=== PATIENT | female | born 1970 | race Two or more races ===

== ENCOUNTER → 2017-01-28 | Outpatient (CLI) | payer OTHER ==
[~2017-01-28] MED LIST: HYDR-3138 PO; None at this Time
== END | disposition home or self-care (01) ==
LOC: STAR 10:16
PROVIDERS: ATTEND Otolaryngology
DX: Z02.9 Encounter for administrative examinations, unspecified (principal)

== ENCOUNTER 2017-02-05 06:48 | Day surgery (SDC) | payer OTHER ==
[~2017-02-05] VITALS: Ht 160 cm; Wt 71.0 kg
[2017-02-05] MEDS ORDERED: BACITRACIN OINT 500U/GM, 15 GM ONE (07:00)
[2017-02-05] MEDS ORDERED: LIDOCAINE 1%-EPI 1:100K, 30ML ONE (07:00)
[2017-02-05] MEDS ORDERED: OXYMETAZOLINE NASAL SPRAY 0.05%, 15ML ONE (07:00)
[2017-02-05] MEDS ORDERED: LACTATED RINGERS 1,000 ML IV SCH (07:27)
[2017-02-05 07:28] VITALS: BP 123/79
[2017-02-05 07:56] LABS: HCG UR OBC PASS
[2017-02-05] MEDS ORDERED: FENTANYL PF 250 MCG/5ML ONE (08:48)
[2017-02-05] MEDS ORDERED: MIDAZOLAM 1 MG/ML, 2ML ONE (08:48)
[2017-02-05] MEDS ORDERED: ACETAMINOPHEN 325 MG TABLET PO PRN (09:30)
[2017-02-05] MEDS ORDERED: LABETALOL 5MG/ML, 20ML IV PRN (09:30)
[2017-02-05] MEDS ORDERED: FENTANYL PF 100 MCG/2ML IV PRN (09:30)
[2017-02-05] MEDS ORDERED: MIDAZOLAM 1 MG/ML, 2ML IV PRN (09:30)
[2017-02-05] MEDS ORDERED: ONDANSETRON 2MG/ML, 2ML IVPush PRN (09:30)
[2017-02-05] MEDS ORDERED: EPHEDRINE 50 MG/ML, 1ML IVPush PRN (09:30)
[2017-02-05] MEDS ORDERED: PROMETHAZINE 25 MG/ML, 1ML IV PRN (09:30)
[2017-02-05] MEDS ORDERED: METOPROLOL 1 MG/ML, 5ML IV PRN (09:30)
[2017-02-05] MEDS ORDERED: hydrALAzine 20 MG/ML, 1ML IV PRN (09:30)
[2017-02-05] MEDS ORDERED: MEPERIDINE/PF 25MG/0.5ML IVPush PRN (09:30)
[2017-02-05] MEDS ORDERED: OXYcodone 5 MG/5 ML ORAL.SOL UDC PO PRN (09:30)
[2017-02-05] MEDS ORDERED: ALBUTEROL SULFATE 2.5 MG/3 ML NPPB PRN (09:30)
[2017-02-05] MEDS ORDERED: HYDROmorphone 1 MG/ML, 1ML IV PRN (09:30)
[2017-02-05] MEDS ORDERED: ACETAMINOPHEN 325 MG TABLET ONE (10:00)
[2017-02-05] MEDS ORDERED: OXYcodone 5 MG/5 ML ORAL.SOL UDC ONE (10:00)
[2017-02-05] MEDS ORDERED: FENTANYL PF 100 MCG/2ML ONE (10:00)
[2017-02-05] MEDS ORDERED: ONDANSETRON 2MG/ML, 2ML ONE (11:09)
[2017-02-05] MEDS ORDERED: NEOSTIGMINE 1 MG/ML, 10ML ONE (11:09)
[2017-02-05] MEDS ORDERED: ROCURONIUM 10 MG/ML ONE (11:09)
[2017-02-05] MEDS ORDERED: DEXAMETHASONE 4 MG/ML, 1ML ONE (11:09)
[2017-02-05] MEDS ORDERED: GLYCOPYRROLATE 0.2MG/1ML ONE (11:09)
[2017-02-05] MEDS ORDERED: PROPOFOL 10 MG/ML, 20ML ONE (11:09)
[2017-02-05] MEDS ORDERED: CEFAZOLIN 1,000 MG ONE (11:09)
[2017-02-05] MEDS ORDERED: SUCCINYLCHOLINE 20 MG/ML, 10ML ONE (11:09)
== END 2017-02-05 13:05 | disposition home or self-care (01) ==
LOC: OUT 06:48
PROVIDERS: ATTEND Otolaryngology
DX: J34.2 Deviated nasal septum (principal); J34.3 Hypertrophy of nasal turbinates; Z90.49 Acquired absence of other specified parts of digestive tract
CPT/HCPCS: 30140; 30520; 81025; J0330; J0690; J1100; J2250; J2405; J2704; J2710; J3010; J3490; J7120

== ENCOUNTER 2019-05-15 06:15 | Day surgery (SDC) | payer OTHER ==
[~2019-05-15] VITALS: Ht 160 cm; Wt 75.0 kg
[~2019-05-15 06:15] MED LIST changes: -HYDR-3138 PO; +HYDR-3237 PO
[2019-05-15] MEDS ORDERED: LACTATED RINGERS 1,000 ML IV SCH (06:27)
[2019-05-15 06:28] VITALS: BP 117/77
[2019-05-15] MEDS ORDERED: BUPIVACAINE/PF 0.25% ONE (06:54)
[2019-05-15] MEDS ORDERED: SILVER NITRATE STICK TP ONE (06:55)
[2019-05-15 07:18] LABS: HCG UR SG 1.024 (1.003-1.030)
[2019-05-15] MEDS ORDERED: FENTANYL PF 100 MCG/2ML ONE ×2 (07:49→09:17)
[2019-05-15] MEDS ORDERED: MIDAZOLAM 1 MG/ML, 2ML ONE (07:49)
[2019-05-15] MEDS ORDERED: KETOROLAC 30 MG/1 ML IV PRN (08:30)
[2019-05-15] MEDS ORDERED: ALBUTEROL SULFATE 2.5 MG/3 ML NPPB PRN (08:30)
[2019-05-15] MEDS ORDERED: OXYcodone 5 MG/5 ML ORAL.SOL UDC PO PRN (08:30)
[2019-05-15] MEDS ORDERED: MEPERIDINE/PF 25MG/0.5ML IVPush PRN (08:30)
[2019-05-15] MEDS ORDERED: FENTANYL PF 100 MCG/2ML IV PRN (08:30)
[2019-05-15] MEDS ORDERED: HYDROmorphone 2 MG/ML, 1ML IVPush PRN (08:30)
[2019-05-15] MEDS ORDERED: hydrALAzine 20 MG/ML, 1ML IV PRN (08:30)
[2019-05-15] MEDS ORDERED: ACETAMINOPHEN 325 MG TABLET PO PRN (08:30)
[2019-05-15] MEDS ORDERED: LABETALOL 5MG/ML, 20ML IV PRN (08:30)
[2019-05-15] MEDS ORDERED: DIAZEPAM 5 MG/ML, 2ML IVPush PRN (08:30)
[2019-05-15] MEDS ORDERED: PROMETHAZINE 25 MG/ML, 1ML IV PRN (08:30)
[2019-05-15] MEDS ORDERED: ACETAMINOPHEN 650 MG/20.3 ML UDC ONE ×2 (09:07→09:10)
[2019-05-15] MEDS ORDERED: OXYcodone 5 MG/5 ML ORAL.SOL UDC ONE (09:17)
[2019-05-15] MEDS ORDERED: KETOROLAC 30 MG/1 ML ONE (14:57)
[2019-05-15] MEDS ORDERED: ONDANSETRON 2MG/ML, 2ML ONE (14:57)
[2019-05-15] MEDS ORDERED: PROPOFOL 10 MG/ML, 20ML ONE (14:57)
[2019-05-15] MEDS ORDERED: DEXAMETHASONE 4 MG/ML, 1ML ONE (14:57)
[2019-05-15] MEDS ORDERED: CEFAZOLIN 1,000 MG ONE (14:57)
== END 2019-05-15 12:05 | disposition home or self-care (01) ==
LOC: OR 06:15
PROVIDERS: ATTEND Obstetrics & Gynecology
DX: N85.8 Other specified noninflammatory disorders of uterus (principal); N99.71 Accidental puncture and laceration of a genitourinary system organ or structure during a genitourinary system procedure; Z79.899 Other long term (current) drug therapy; Z91.013 Allergy to seafood; Z90.49 Acquired absence of other specified parts of digestive tract; Z98.890 Other specified postprocedural states; Z83.3 Family history of diabetes mellitus; Z80.8 Family history of malignant neoplasm of other organs or systems; Y83.8 Other surgical procedures as the cause of abnormal reaction of the patient, or of later complication, without mention of misadventure at the time of the procedure
CPT/HCPCS: 58558; 81025; 88305; J0690; J1100; J1885; J2250; J2405; J2704; J3010; J3490; J7120

== ENCOUNTER 2019-10-22 11:20 | Outpatient (CLI) | payer OTHER ==
[2019-10-22] MEDS ORDERED: ESTRADIOL PATCH TD (12:33)
[2019-10-22] MEDS ORDERED: ANTISEIZURE MED PO (12:33)
[2019-10-22] MEDS ORDERED: ESTROGEN PO (12:33)
[2019-10-22 12:50] LABS: CHLORIDE 107 mmol/L (98-107)
[2019-10-22 12:59] LABS: MICROSCOPIC INDICATED
[2019-10-22 12:59] LABS: ALANINE AMINOTRANSFERASE 26 U/L (12-78); ALBUMIN 3.6 g/dL (3.4-5.0); ALKALINE PHOSPHATASE 76 U/L (45-117); ANION GAP 5 mmol/L (5-15); BILIRUBIN,TOTAL 0.8 mg/dL (0.2-1.0); CALCIUM 8.6 mg/dL (8.5-10.1); CREATININE 0.85 mg/dL (0.55-1.02)
[2019-10-22 13:02] LABS: CULTURE INDICATED? YES
== END 2019-10-22 23:59 | disposition home or self-care (01) ==
LOC: STAR 11:20
PROVIDERS: ATTEND Obstetrics & Gynecology
DX: Z01.818 Encounter for other preprocedural examination (principal); N95.0 Postmenopausal bleeding; R10.31 Right lower quadrant pain
CPT/HCPCS: 36415; 80053; 81001; 84702; 87086; 93005

== ENCOUNTER 2019-10-29 07:23 | Day surgery (SDC) | payer OTHER ==
[~2019-10-29] VITALS: Ht 160 cm; Wt 71.0 kg
[~2019-10-29 07:23] MED LIST changes: +ANTISEIZURE MED PO; +ESTRADIOL PATCH TD; +ESTROGEN PO; +FLUORESCEIN SODIUM 500 MG/5 ML ONE
[2019-10-29] MEDS ORDERED: LACTATED RINGERS 1,000 ML IV SCH (07:37)
[2019-10-29 07:59] VITALS: BP 109/68
[2019-10-29] MEDS ORDERED: GABAPENTIN 300 MG CAPSULE PO ONE (08:00)
[2019-10-29] MEDS ORDERED: ACETAMINOPHEN 500 MG TABLET PO ONE (08:00)
[2019-10-29] MEDS ORDERED: SCOPOLAMINE PATCH, 1.5MG PATCH.TD72 TD ONE (08:46)
[2019-10-29 08:47] LABS: HCG UR SG 1.019 (1.003-1.030)
[2019-10-29] MEDS ORDERED: FENTANYL PF 250 MCG/5ML ONE (08:55)
[2019-10-29] MEDS ORDERED: MIDAZOLAM 1 MG/ML, 2ML ONE (08:55)
[2019-10-29] MEDS ORDERED: PROPOFOL 50 ML ONE (09:39)
[2019-10-29] MEDS ORDERED: PROPOFOL 10 MG/ML, 20ML ONE (10:15)
[2019-10-29] MEDS ORDERED: ROCURONIUM 10MG/ML,5ML ONE (10:15)
[2019-10-29] MEDS ORDERED: DEXAMETHASONE 4 MG/ML, 1ML ONE (10:15)
[2019-10-29] MEDS ORDERED: NEOSTIGMINE 1 MG/ML, 10ML ONE (10:15)
[2019-10-29] MEDS ORDERED: SUCCINYLCHOLINE 20 MG/ML, 10ML ONE (10:15)
[2019-10-29] MEDS ORDERED: CEFAZOLIN 1,000 MG ONE (10:15)
[2019-10-29] MEDS ORDERED: ONDANSETRON 2MG/ML, 2ML ONE (10:15)
[2019-10-29] MEDS ORDERED: SUGAMMADEX 200 MG/2 ML IVPush ONE (10:15)
[2019-10-29] MEDS ORDERED: GLYCOPYRROLATE 0.2MG/1ML, 5ML ONE (10:15)
[2019-10-29] MEDS ORDERED: hydrALAzine 20 MG/ML, 1ML IV PRN (10:30)
[2019-10-29] MEDS ORDERED: MEPERIDINE/PF 25MG/0.5ML IVPush PRN (10:30)
[2019-10-29] MEDS ORDERED: FENTANYL PF 100 MCG/2ML IV PRN (10:30)
[2019-10-29] MEDS ORDERED: HYDROmorphone 2 MG/ML, 1ML IVPush PRN (10:30)
[2019-10-29] MEDS ORDERED: ACETAMINOPHEN 325 MG TABLET PO PRN (10:30)
[2019-10-29] MEDS ORDERED: OXYcodone 5 MG/5 ML ORAL.SOL UDC PO PRN (10:30)
[2019-10-29] MEDS ORDERED: KETOROLAC 30 MG/1 ML IV PRN (10:30)
[2019-10-29] MEDS ORDERED: ALBUTEROL SULFATE 2.5 MG/3 ML NPPB PRN (10:30)
[2019-10-29] MEDS ORDERED: LABETALOL 5MG/ML, 20ML IV PRN (10:30)
[2019-10-29] MEDS ORDERED: DIAZEPAM 5 MG/ML, 2ML IVPush PRN (10:30)
[2019-10-29] MEDS ORDERED: PROMETHAZINE 25 MG/ML, 1ML IV PRN (10:30)
[2019-10-29] MEDS ORDERED: FENTANYL PF 100 MCG/2ML ONE (11:03)
[2019-10-29] MEDS ORDERED: OXYcodone 5 MG/5 ML ORAL.SOL UDC ONE (11:03)
[2019-10-29] MEDS ORDERED: PROMETHAZINE 25 MG/ML, 1ML ONE (11:04)
== END 2019-10-29 14:50 | disposition home or self-care (01) ==
LOC: OUT 07:23
PROVIDERS: ATTEND Obstetrics & Gynecology
DX: N95.0 Postmenopausal bleeding (principal); D25.9 Leiomyoma of uterus, unspecified; N80.0 Endometriosis of uterus; Z90.49 Acquired absence of other specified parts of digestive tract; Z88.8 Allergy status to other drugs, medicaments and biological substances; Z98.890 Other specified postprocedural states
CPT/HCPCS: 58552; 81025; 88307; J0690; J1100; J2250; J2405; J2550; J2704; J3010; J7120; J2710; J0330